=== PATIENT | female | born 1960 | race Caucasian/White ===

== ENCOUNTER 2017-03-30 15:01 | Outpatient (CLI) | payer OTHER | END 2017-03-30 17:00 | disposition home or self-care (01) | LOC: DCC 15:01 | DX: R42 Dizziness and giddiness (principal); E78.5 Hyperlipidemia, unspecified; E11.9 Type 2 diabetes mellitus without complications; J45.909 Unspecified asthma, uncomplicated; E66.9 Obesity, unspecified; Z68.42 Body mass index [BMI] 45.0-49.9, adult | CPT/HCPCS: G0463 ==

== ENCOUNTER 2017-04-27 15:43 | Outpatient (CLI) | payer OTHER | END 2017-04-27 17:00 | disposition home or self-care (01) | LOC: DCC 15:43 | DX: E11.9 Type 2 diabetes mellitus without complications (principal); I10 Essential (primary) hypertension; E78.5 Hyperlipidemia, unspecified; R10.9 Unspecified abdominal pain; K62.5 Hemorrhage of anus and rectum; R42 Dizziness and giddiness; Z88.0 Allergy status to penicillin | CPT/HCPCS: G0463 ==